=== PATIENT | female | born 1980 | race Caucasian/White ===

== ENCOUNTER 2016-07-01 16:20 | Emergency (ER) | payer OTHER ==
[2016-07-01] MEDS ORDERED: SODIUM CHLORIDE 0.9% 1,000 ML ONE (17:07)
[2016-07-01 17:20] LABS: ABSOLUTE NEUTROPHIL COUNT 5.1 K/mm3 (1.8-7.7); BASO # 0.1 K/mm3 (0.0-0.2); BASO % 0.8 % (0.2-1.0); EOS # 0.1 (0.0-0.5); EOS % 1.3 % (0.9-2.9); HEMATOCRIT 40.7 % (37.0-47.0); HEMOGLOBIN 13.4 gm/l (12.0-16.0); IMM NEUT% 0.4 % (0-1); LYMPH # 2.7 (1.0-4.8); LYMPH % 32.1 % (15-45); MEAN CELL VOLUME 92.9 fl (81.0-99.0); MEAN CORPUSCULAR HEMOGLOBIN 30.6 pg (27.0-31.0); MEAN CORPUSCULAR HGB CONC 32.9 g/dl (33.0-37.0); MEAN PLATELET VOLUME 9.9 fl (7.4-10.4); MONO # 0.5 (0.0-0.8); MONO % 5.8 % (4-12); NEUT % 59.6 % (43-75); PLATELET COUNT 308 K/mm3 (130-400); RED CELL DISTRIBUTION WIDTH 12.3 % (11.5-14.5)
[2016-07-01 17:38] LABS: ALB/GLOB RATIO 1.7 (>1.0); ALBUMIN 4.8 gm/dL (3.5-5.7); CALCIUM 9.7 mg/dL (8.6-10.3)
[2016-07-01 18:34] LABS: INR 0.92; PROTHROMBIN TIME 9.7 SECONDS (9.3-11.4)
== END 2016-07-01 19:28 | disposition home or self-care (01) ==
LOC: ED 16:20
DX: R53.83 Other fatigue (principal); F17.210 Nicotine dependence, cigarettes, uncomplicated
CPT/HCPCS: 84703; 85025; 80053; 85610; 84443; 99283 ×2; 96360; J7030